=== PATIENT | female | born 2000 | race African-American/Black ===

== ENCOUNTER 2023-04-25 16:28 | Emergency (ER) | payer OTHER, SELFPAY ==
[2023-04-25 16:41] VITALS: BP 114/68; PULSE 39; RESP 18; TEMP 37.2; O2SAT 95
[2023-04-25 17:34] VITALS: PULSE 70
--- NOTE | 2023-04-25 19:04 | NUR.NOTE ---
Nursing Note: This RN received report from Aimee Linton RN and assumed care of patient @0560.
[2023-04-25 20:11] LABS: *AMPHETAMINES SCREEN URINE Negative (Negative); *BARBITURATES SCREEN URINE Negative (Negative); *BENZODIAZEPINES SCREEN URINE Negative (Negative); Cannabinoids THC Positive (Negative); Cocaine Screen,Urine Negative (Negative); METHADONE URINE SCREEN Negative (Negative); OPIATES URINE SCREEN Negative (Negative); Tricyclic Antidepressants Negative (Negative)
[2023-04-25 22:12] LABS: Source Nasal/Nares
[2023-04-25 22:43] LABS: COVID-19 PCR Negative (Negative)
--- NOTE | 2023-04-25 23:10 | ED.GENADUL_ITS ---
Discharge Plan Disposition Patient Disposition: Home Condition: Improving Discharge Details Clinical Impression: Depression Primary Care Provider: Eve,[facility] ED Provider: Shaka Diamond Home Meds and New Rx's Prescriptions: No Action lamotrigine 25 mg Tablet 25 mg PO QHS bupropion HCl 300 mg Tablet Extended Release 24 Hr 300 mg PO DAILY Discharge Instructions Instructions: Depression (ED) Additional Instructions: Please comply with safety plan as instructed. Please return to the emergency department for any worsening symptoms Discharge Data Discharge Date/Time-TO BE ENTERED AT DEPARTURE: 04/26/23 13:42 Medical Decision Making <ROAS Franklin - Last Filed: 04/26/23 17:01> This 22-year-old female identifying as male presents with report of suicidal ideation, depression, anxiety Initially denies suicidality, however after speaking with [facility] after being medically cleared, patient does endorse intermittent suicidality, no attempts to harm self today Mental health clinician recommending inpatient status, voluntary at this time calm, cooperative 12: 30 patient assessed by [facility] and cleared for home with safety plan <Shaka Diamond MD - Last Filed: 04/26/23 12:32> This 22-year-old female identifying as male presents with report of suicidal ideation, depression, anxiety Initially denies suicidality, however after speaking with [facility] after being medically cleared, patient does endorse intermittent suicidality, no attempts to harm self today Mental health clinician recommending inpatient status, voluntary at this time calm, cooperative 12: 30 patient assessed by [facility] and cleared for home with safety plan HPI <ROSA Franklin - Last Filed: 04/26/23 17:01> General Date/Time Provider Initiated Documentation: 04/25/23 16:46 . HPI Narrative: This 22-year-old female identifying as male presents with report of intermittent suicidal ideation, depression, anxiety. Recently saw his counselor actually today and was started on Lamictal and bupropion. States that she has been cutting his r leg but has not engaged in any cutting activity for the past 3 weeks. he denies any attempts to harm self today. he denies any auditory visual hallucinations. he smokes marijuana but denies any Related Data Home Medications Medication Instructions Recorded Confirmed bupropion HCl 300 mg 24 hr tablet, 300 mg PO DAILY 04/25/23 04/25/23 extended release lamotrigine 25 mg tablet 25 mg PO QHS 04/25/23 04/25/23 Allergies Allergy/AdvReac Type Severity Reaction Status Date / Time amoxicillin Allergy Intermediate Swelling/Ed Verified 04/25/23 17:19 sydni Penicillins Allergy Intermediate Swelling/Ed Verified 04/25/23 17:19 sydni blueberry Allergy Mild Itching Verified 04/25/23 17:22 General Stated Complaint: PsychEval CRISPIN: 2 PFSH <ROSA Franklin - Last Filed: 04/26/23 17:01> All Active Problems (Updated 04/26/23 @ 12:31 by Shaka Diamond MD) Depression (Chronic) Social History Smoking/Tobacco Use Status: Never Smoking risk assessment performed?: Yes Alcohol Intake: never Drug use: Occasionally Substance use type: marijuana Do you feel safe at home: Yes Do you feel safe in your relationship?: Yes Course <ROSA Franklin - Last Filed: 04/26/23 17:01> Vital Signs Vital signs: Vital Signs Temperature 37.2 C 04/25/23 16:41 Pulse 39 L 04/25/23 16:41 Respiratory Rate 18 04/25/23 16:41 Blood Pressure 114/68 04/25/23 16:41 Pulse Oximetry 95 04/25/23 16:41 Temperature 37.2 C 04/25/23 16:41 Temperature Source Skin 04/25/23 16:41 Pulse 70 04/25/23 17:34 Respiratory Rate 18 04/25/23 16:41 Respiratory Effort Normal 04/25/23 16:45 Blood Pressure 114/68 04/25/23 16:41 Blood Pressure Position Sitting 04/25/23 16:41 Pulse Oximetry 95 04/25/23 16:41 Oxygen Delivery Method Room Air 04/25/23 16:41 Oxygen Flow Rate 0 04/25/23 16:41 Lab/Test Results Lab/Test Results: Laboratory Tests Range/Units 04/25/23 04/25/23 19:15 19:30 Urine Opiates Screen (Negative) Negative Urine Methadone Screen (Negative) Negative Ur Barbiturates Screen (Negative) Negative Ur Tricyclics Screen (Negative) Negative Ur Amphetamines Screen (Negative) Negative U Benzodiazepines Scrn (Negative) Negative Urine Cocaine Screen (Negative) Negative Ur THC Screen (Negative) Positive A COVID-19 Source Nasal/Nares SARS-CoV-2 (PCR) (Negative) Negative POC- Test(urine) Negative Sign Out <ROSA Franklin - Last Filed: 04/26/23 17:01> Sign Out Data: Sign Out Comment: pending voluntary admission for SI/depression Last updated by Addie Otero PA at 04/25/23 23:23 Sign Out Comment: Woman identifying as male with depression and SI. For voluntary admission. Call psych if the patient wants to leave. Last updated by Milagro Jovel MD at 04/26/23 08:54
--- NOTE | 2023-04-26 08:07 | CMSP_ITS ---
Date of service: 04/26/23 Time of Service: 08:07 Care Management Safety Plan Status Status: Voluntary Reason for Wait Reason for Wait: Inpatient Admission Safety Plan Safety Plan: VOLUNTARY FOR INPATIENT PSYCHIATRIC STABILIZATION. Patient is appropriate in all interactions since arriving at [facility]; Pt has demonstrated appropriate coping and communication skills, has articulated his or her needs and concerns and is fully engaged during staff interactions. Safety plan has been established with patient, and care team, to adhere to patient goals, identify restrictions based on behavioral status, address nutrition, and determine allowed personal belongings, tools for hygiene and personal care. Determine level of activity including ambulation, level of supervision, visitors, and determine privileges based on behaviors and level of engagement by pt. Henri is a 22 y/o female, identifying as male who is currently admitted to the ER with SI, depression and anxiety. SAFETY PLAN: 1. Will remain on suicide precautions. In Paper Clothes 2. Will remain in room under direct supervision of one-on-one staff at all times provided by [employer]; BRIG[place], [employer] director of manufacturing operations. 3. May have paper cups, plates, finger foods as well as a cardboard spoon with which to eat meals. 4. Follow [facility] Management of the Admitted Behavioral Health Patient policy. 5. Comfort bath system only, shower permitted with escort at RN discretion. 6. No personal belongings-soft items permitted at RN discretion. 7. Visitors-none at this time. 8. Activities: soft cart items approved per RN discretion. 9. Bathroom privileges with escort in the ED, available in room without limitation on M/S. 10. Phone: contact limited to family at this time, via cordless phone at RN discretion. 11. Due to VOLUNTARY status, if patient wishes to leave [facility], staff will contact [facility] Crisis Screener ([phone]) and On-Call Excellence Consultant ([phone]) as soon as possible. In the event of elopement, notify [place] [employer] ([phone]). Patient is currently voluntarily at [facility] and seeking inpatient admission when a bed becomes available. [facility] Frontline Finance Director will continue seeking placem ent. Please contact the Athlete Manager Excellence Consultant ([phone]) and [facility] Finance Director ([phone]) for any needed changes in the Safety Plan. Safety plan has been provided to interdepartmental care team.
[2023-04-26 08:17] VITALS: BP 128/74; PULSE 78; RESP 16; O2SAT 98
[2023-04-26 12:46] VITALS: BP 128/85; PULSE 78; RESP 18; TEMP 36.4; O2SAT 99
--- NOTE | 2023-04-27 17:53 | MHPN_ITS ---
Date of service: 04/26/23 Time of Service: 11:23 Mental Health Emergency Note Release [facility] release signed:: Yes Reason for Visit Prior to ESC Ximena's assessment of the client last evening the client is not known to [facility]. Last night the client presented to [facility] ED with chief complaint of increased depression and increase in suicidal ideations, however the client denies intent or plan. The client is seeking voluntary inpatient treatment and is seen in person at [facility] ED today for daily re-assessment. In the last 2 weeks has the pt presented for ES prior to today?: No Impression The client is a 22 y/o female, however identifies as non-binary and uses the they/them pronouns. The client presents laying down in hospital bed dressed in proper paper hospital attire when this insurance underwriter sales arrives in person. This insurance underwriter sales had received notification from nurse that the client has been accepted at [facility] so this insurance underwriter sales had a conversation with the client. During this writers conversation with the client they report that they do not feel like they need inpatient treatment at this time and feels like they would be able to be discharged on a safety plan. The client reports that they are currently not endorsing suicidal ideations and also denies intent or plan. The client reports to this insurance underwriter sales that they feel like going away to treatment would cause more anxiety as they would be missing work and losing out on money. Plan/Disposition Recommended Disposition: Therapy. Plan: The client was offered a bed at [facility], but declined stating that they feel safe to discharge back to the community. The client will be released from the hospital on pro-active safety plan with check-in phone calls with [facility] ES between 1p and 3p until 05/01 and follow-up with therapist and psychiatrist. The client is also provided with [facility] 24 hour phone number and [phone]. Person reported agreement to plan: Yes Reports/communication Outcome discussed with: ED/Personnel (Verbal passover given to ED provider Dr. Zhou)
== END 2023-04-26 13:42 | disposition home or self-care (01) ==
PROVIDERS: Physician Assistant; Emergency Provider Emergency Medicine
DX: F32.A Depression, unspecified (principal); R45.851 Suicidal ideations; F41.9 Anxiety disorder, unspecified
CPT/HCPCS: 80307; 81025; 87635; 99285

== ENCOUNTER 2023-04-29 21:04 | Emergency (ER) | payer OTHER, SELFPAY ==
[2023-04-29 21:07] VITALS: BP 132/79; PULSE 76; RESP 18; TEMP 37.1; O2SAT 96
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
--- NOTE | 2023-04-29 23:02 | ED.GENADUL_ITS ---
Discharge Plan Disposition Patient Disposition: Psychiatric Hospital/Unit Specific Psychiatric Facility: [facility] Discharge Details Clinical Impression: Depression, Contusion of left hand Primary Care Provider: Unknown,Unknown ED Provider: Quinton Cox Home Meds and New Rx's Prescriptions: No Action lamotrigine 25 mg Tablet 25 mg PO HS bupropion HCl 300 mg Tablet Extended Release 24 Hr 300 mg PO DAILY Discharge Data Discharge Date/Time-TO BE ENTERED AT DEPARTURE: 04/30/23 15:08 Medical Decision Making This 22-year-old female identifying as male presenting with worsening depression intermittent suicidal ideation, and lack of interest, injured left hand punching a wall today, x-ray was ordered does not show evidence of acute abnormality, discussed with [facility] chest, will admit patient inpatient she is voluntary status and denies any suicidality Denies any illicit drug use, denies any chance of We will order COVID test We will transition care to Dr. Leblanc pending placement HPI General Date/Time Provider Initiated Documentation: 04/29/23 21:14 . HPI Narrative: This is a 22-year-old female identifying as male presents with report of depression and lack of interest in life. Denies current suicidality. Was frustrated this evening and punched a wall reportedly with his left hand. Related Data Home Medications Medication Instructions Recorded Confirmed bupropion HCl 300 mg 24 hr tablet, 300 mg PO DAILY 04/25/23 04/30/23 extended release lamotrigine 25 mg tablet 25 mg PO HS 04/25/23 04/30/23 Allergies Allergy/AdvReac Type Severity Reaction Status Date / Time amoxicillin Allergy Intermediate Swelling/Ed Verified 04/30/23 09:52 sydni Penicillins Allergy Intermediate Swelling/Ed Verified 04/30/23 09:52 sydni blueberry Allergy Mild Itching Verified 04/30/23 09:52 General Stated Complaint: PsychEval CRISPIN: 2 PFSH All Active Problems (Updated 04/30/23 @ 11:49 by Quinton Cox MD) Depression (Chronic) Depression (Chronic) Contusion of left hand (Acute) Social History Smoking/Tobacco Use Status: Never Smoking risk assessment performed?: Yes Alcohol Intake: never Drug use: Occasionally Substance use type: marijuana Do you feel safe at home: Yes Do you feel safe in your relationship?: Yes Course Vital Signs Vital signs: Vital Signs Temperature 37.1 C 04/29/23 21:07 Pulse 76 04/29/23 21:07 Respiratory Rate 18 04/29/23 21:07 Blood Pressure 132/79 04/29/23 21:07 Pulse Oximetry 96 04/29/23 21:07 Temperature 37.1 C 04/29/23 21:07 Pulse 76 04/29/23 21:07 Respiratory Rate 18 04/29/23 21:07 Respiratory Effort Normal, Non-Labored 04/29/23 21:11 Blood Pressure 132/79 04/29/23 21:07 Blood Pressure Position Sitting 04/29/23 21:07 Pulse Oximetry 96 04/29/23 21:07 Oxygen Delivery Method Room Air 04/29/23 21:07 Oxygen Flow Rate 0 04/29/23 21:07 Pain Level 3 04/29/23 21:07 Sign Out Sign Out Data: Sign Out Comment: pending voluntary placement, depression Last updated by Addie Otero PA at 04/29/23 23:26 Sign Out Comment: pt voluntary for depression, no issues during shift Last updated by Arnol Leblanc MD at 04/30/23 07:31
[2023-04-29 23:23] LABS: Source Nasal/Nares
[2023-04-29 23:53] LABS: COVID-19 PCR Negative (Negative)
--- NOTE | 2023-04-29 23:53 | W.EDPROG ---
Date of service: 04/29/23 Time of Service: 23:53 Medical Decision Making pt awaiting voluntary placement for depression, currently calm and cooperative with no other acute complaints, xray of left hand negative, will continue to monitor until safe dispo found Sign Out Sign Out Data: Sign Out Comment: pending voluntary placement, depression Last updated by Addie Otero PA at 04/29/23 23:26 Discharge Plan Discharge Details Chief Complaint: PsychEval Primary Care Provider: Unknown,Unknown ED Provider: Arnol Leblanc Home Meds and New Rx's Prescriptions: No Action lamotrigine 25 mg Tablet 25 mg PO QHS bupropion HCl 300 mg Tablet Extended Release 24 Hr 300 mg PO DAILY
--- NOTE | 2023-04-30 05:23 | NUR.NOTE ---
Pt requesting pain medication for a generalized headache. MD notified. Meds ordered/administered.
[2023-04-30] MEDS: Acetaminophen 500 MG TAB 1000 MG PO (05:30)
[2023-04-30] MEDS: lamoTRIgine 25 MG TAB PO (08:57)
[2023-04-30] MEDS: buPROPion-CR 150 MG TABCR 300 MG PO (08:57)
--- NOTE | 2023-04-30 11:47 | W.EDPROG ---
Date of service: 04/30/23 Time of Service: 11:47 Medical Decision Making Care signed out by Dr. Leblanc, please see his documentation regarding ED course. Plan at signout was to follow-up on placement. Crisis screener agrees with benefit of inpatient treatment. We will treat to accept patient. I spoke with provider Shayna Soto, discussed ED course. She will accept the patient in transfer. Lab Data Lab results reviewed: Yes I reviewed the patient's lab results. Labs: Laboratory Tests Range/Units 04/29/23 22:45 COVID-19 Source Nasal/Nares SARS-CoV-2 (PCR) (Negative) Negative Sign Out Sign Out Data: Sign Out Comment: pending voluntary placement, depression Last updated by Addie Otero PA at 04/29/23 23:26 Sign Out Comment: pt voluntary for depression, no issues during shift Last updated by Arnol Leblanc MD at 04/30/23 07:31 Discharge Plan Disposition Patient Disposition: Psychiatric Hospital/Unit Specific Psychiatric Facility: [facility] Discharge Details Chief Complaint: PsychEval Clinical Impression: Depression, Contusion of left hand Primary Care Provider: Unknown,Unknown ED Provider: Quinton Cox Home Meds and New Rx's Prescriptions: No Action lamotrigine 25 mg Tablet 25 mg PO QHS bupropion HCl 300 mg Tablet Extended Release 24 Hr 300 mg PO DAILY
--- NOTE | 2023-04-30 12:44 | CMPROGNOTE_ITS ---
Date of service: 04/30/23 Time of Service: 12:44 Care Management Progress Note Progress Note Text Progress Note Text: DISPOSITION: Henri presents in the ED for worsening depression, intermittent SI and anhedonia. They are assessed by eLnka of [facility] and referrals are sent to psychiatric facilities for review. [facility]. They will follow up with their PCP, [facility] and plan of care as directed upon discharge from the [facility]. [employer] provides transportation to [place]. Status Status: Voluntary
--- NOTE | 2023-04-30 12:44 | PDOC.CMPRO ---
Date of service: 04/30/23 Time of Service: 12:44 Care Management Progress Note Progress Note Text Progress Note Text: DISPOSITION: Henri presents in the ED for worsening depression, intermittent SI and anhedonia. They are assessed by Lenka of [facility] and referrals are sent to psychiatric facilities for review. [facility]. They will follow up with their PCP, [facility] and plan of care as directed upon discharge from the [facility]. [employer] provides transportation to [place]. Status Status: Voluntary
[2023-04-30 13:21] VITALS: BP 136/81; PULSE 83; RESP 18; TEMP 36.5; O2SAT 99
[2023-04-30 13:43] LABS: *AMPHETAMINES SCREEN URINE Negative (Negative); *BARBITURATES SCREEN URINE Negative (Negative); *BENZODIAZEPINES SCREEN URINE Negative (Negative); Cannabinoids THC Positive (Negative); Cocaine Screen,Urine Negative (Negative); METHADONE URINE SCREEN Negative (Negative); OPIATES URINE SCREEN Negative (Negative)
[2023-04-30 13:44] LABS: Tricyclic Antidepressants Negative (Negative)
== END 2023-04-30 15:08 ==
PROVIDERS: Physician Assistant; Emergency Provider Student in an Organized Health Care Education/Training Program
DX: R45.851 Suicidal ideations (principal); F32.A Depression, unspecified; M79.642 Pain in left hand; R45.84 Anhedonia; Z20.822 Contact with and (suspected) exposure to COVID-19
CPT/HCPCS: 80307; 81025; 87635; 99285; 73130